=== PATIENT | male | born 1995 | race American Indian/Alaskan Native ===

== ENCOUNTER 2018-12-29 17:30 | Emergency (ER) | payer OTHER ==
[2018-12-29 19:06] VITALS: BP 165/101
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
== END 2018-12-29 19:50 | disposition home or self-care (01) ==
LOC: ED 17:30
DX: M62.830 Muscle spasm of back (principal); I25.2 Old myocardial infarction; I50.9 Heart failure, unspecified; Z95.5 Presence of coronary angioplasty implant and graft; Z98.890 Other specified postprocedural states; Z79.899 Other long term (current) drug therapy